=== PATIENT | male | born 1990 | race Caucasian/White ===

== ENCOUNTER 2017-11-01 20:39 | Inpatient (IN) | payer OTHER ==
[2017-11-01] MEDS: HYDROCODONE/APAP (10/325) TAB PO (22:32)
[2017-11-01] MEDS: ONDANSETRON (ODT) 4 MG TAB ODT (22:32)
[2017-11-01 22:53] LABS: ADD MAN DIFF? NO
[2017-11-01 22:56] LABS: BASOPHILS % 0.3 % (0.0-2.0); EOSINOPHILS # 0.1 10^3/ul (0.0-0.5); EOSINOPHILS % 0.5 % (0.0-7.0); HEMATOCRIT 48.9 % (42.0-52.0); HEMOGLOBIN 16.3 g/dl (14.0-18.0); LYMPHOCYTES # 2.1 10^3/ul (0.8-2.9); LYMPHOCYTES % 19.3 % (15.0-51.0); MEAN CORPUSCULAR HEMOGLOBIN 28.6 pg (29.0-33.0); MEAN CORPUSCULAR HGB CONC 33.3 g/dl (32.0-37.0); MEAN CORPUSCULAR VOLUME 85.9 fl (82.0-101.0); MEAN PLATELET VOLUME 9.7 fl (7.4-10.4); MONOCYTE # 0.7 10^3/ul (0.3-0.9); MONOCYTES % 6.1 % (0.0-11.0); NEUTROPHIL # 8.1 10^3/ul (1.6-7.5); NEUTROPHILS % 73.4 % (39.0-77.0); PLATELET COUNT 338 10^3/UL (140-415); RED BLOOD COUNT 5.69 10^6/ul (4.70-6.10); RED CELL DISTRIBUTION WIDTH 11.7 % (11.5-14.5)
[2017-11-01 23:26] LABS: ALANINE AMINOTRANSFERASE 335 IU/L (13-69); ALBUMIN 4.6 g/dl (3.3-4.9); ALBUMIN/GLOBULIN RATIO 1.17; ALKALINE PHOSPHATASE 85 IU/L (42-121); ANION GAP 14 (8-16); BLOOD UREA NITROGEN 11 mg/dl (7-20); CALCIUM 9.6 mg/dl (8.4-10.2); CARBON DIOXIDE 25 mmol/L (21-31); CHLORIDE 103 mmol/L (97-110); CREATININE 0.75 mg/dl (0.61-1.24); GLUCOSE 113 mg/dl (70-220); POTASSIUM 4.2 mmol/L (3.5-5.1); SODIUM 138 mmol/L (135-144); TOTAL PROTEIN 8.5 g/dl (6.1-8.1)
[2017-11-01 23:29] LABS: ADD UMIC YES; UR ASCORBIC ACID NEGATIVE (NEGATIVE); UR BACTERIA FEW /HPF (NONE SEEN); UR BILIRUBIN (Dip) NEGATIVE (NEGATIVE); UR BLOOD (Dip) 3+ mg/dL (NEGATIVE); UR CLARITY CLOUDY (CLEAR); UR COLOR RED (YELLOW); UR GLUCOSE (Dip) 1+ mg/dL (NEGATIVE); UR KETONES (Dip) NEGATIVE (NEGATIVE); UR LEUKOCYTE ESTERASE (Dip) NEGATIVE Leu/ul (NEGATIVE); UR MUCUS MANY /HPF (NONE SEEN); UR NITRITE (Dip) NEGATIVE (NEGATIVE); UR RBC 2 /HPF (0-5); UR SPECIFIC GRAVITY (Dip) 1.028 (1.003-1.030); UR SQUAMOUS EPITHELIAL CELL MODERATE /HPF (FEW); UR TOTAL PROTEIN (Dip) 2+ mg/dl (NEGATIVE); UR UROBILINOGEN (Dip) NEGATIVE (NEGATIVE); UR WBC 12 /HPF (0-5)
[2017-11-01] MEDS: SOD CHLORIDE 0.9% 1,000 ML IV (23:48)
[2017-11-02 00:18] LABS: ASPARTATE AMINO TRANSFERASE 1570 IU/L (15-46)
[2017-11-02] MEDS: SOD CHLORIDE 0.9% 1,000 ML IV ×8 (01:09→22:38)
[2017-11-02 01:45] LABS: CREATINE KINASE 145229 IU/L (23-200)
[2017-11-02] MEDS ORDERED: ONDANSETRON 4 MG INJ IV (02:30)
[2017-11-02] MEDS ORDERED: DOCUSATE SODIUM 100 MG CAP PO (02:30)
[2017-11-02] MEDS ORDERED: BISACODYL (EC) 5 MG TAB PO (02:30)
[2017-11-02] MEDS ORDERED: HYDROmorphONE 0.5 MG/0.5 ML SYG IV (02:30)
[2017-11-02] MEDS ORDERED: NACL 0.9% 3 ML SYG IV (02:30)
[2017-11-02 03:35] LABS: HAAIG REFLEX REFLEX FILED
[2017-11-02 03:54] LABS: ETHANOL < 10.0 mg/dl
[2017-11-02 04:03] LABS: B-TYPE NATRIURETIC PEPTIDE 47 PG/ML (0-125)
[2017-11-02 04:07] LABS: TROPONIN-I < 0.010 ng/ml (0.000-0.120)
[2017-11-02 04:52] LABS: AMPHETAMINE/METHAMPHETAMINE Negative (NEGATIVE); BARBITURATES Negative (NEGATIVE); BENZODIAZEPINES Negative (NEGATIVE); CANNABINOIDS Negative (NEGATIVE); COCAINE Negative (NEGATIVE); OPIATES Negative (NEGATIVE)
[2017-11-02 07:52] LABS: TROPONIN-I < 0.010 ng/ml (0.000-0.120)
[2017-11-02 08:09] LABS: ALANINE AMINOTRANSFERASE 306 IU/L (13-69); ALBUMIN 3.7 g/dl (3.3-4.9); ALBUMIN/GLOBULIN RATIO 1.37; ALKALINE PHOSPHATASE 69 IU/L (42-121); ANION GAP 14 (8-16); BILIRUBIN,INDIRECT 0.9 mg/dl (0-1.1); BILIRUBIN,TOTAL 0.9 mg/dl (0.2-1.3); BLOOD UREA NITROGEN 10 mg/dl (7-20); CALCIUM 9.1 mg/dl (8.4-10.2); CARBON DIOXIDE 27 mmol/L (21-31); CHLORIDE 104 mmol/L (97-110); CREATININE 0.71 mg/dl (0.61-1.24); GLUCOSE 107 mg/dl (70-220); POTASSIUM 4.1 mmol/L (3.5-5.1); SODIUM 141 mmol/L (135-144); TOTAL PROTEIN 6.4 g/dl (6.1-8.1)
[2017-11-02] MEDS: ENOXAPARIN 40 MG/0.4 ML SYG SC (09:42)
[2017-11-02 09:55] LABS: ASPARTATE AMINO TRANSFERASE 1430 IU/L (15-46)
[2017-11-02 10:35] LABS: CREATINE KINASE 118295 IU/L (23-200)
[2017-11-02] MEDS: ACETAMINOPHEN 325 MG TAB PO (12:29)
[2017-11-02 13:41] LABS: HEPATITIS B SURFACE ANTIGEN NEGATIVE (NEGATIVE)
[2017-11-02 13:42] LABS: TROPONIN-I < 0.010 ng/ml (0.000-0.120)
[2017-11-02 13:58] LABS: CREATINE KINASE 120468 IU/L (23-200)
[2017-11-02 13:59] LABS: HEPATITIS B CORE ANTIBODY NEGATIVE (NEGATIVE); HEPATITIS C VIRAL ANTIBODY NEGATIVE (NEGATIVE)
[2017-11-02 18:31] LABS: HEPATITIS B SURFACE ANTIBODY POSITIVE (NEGATIVE)
[2017-11-02 19:39] LABS: TROPONIN-I < 0.010 ng/ml (0.000-0.120)
[2017-11-02 20:58] LABS: CREATINE KINASE 114430 IU/L (23-200)
[2017-11-03] MEDS: SOD CHLORIDE 0.9% 1,000 ML IV ×10 (02:41→23:32)
[2017-11-03 05:47] LABS: ADD MAN DIFF? NO
[2017-11-03 05:59] LABS: WHITE BLOOD COUNT 10.3 10^3/ul (4.8-10.8)
[2017-11-03 05:59] LABS: BASOPHILS % 0.3 % (0.0-2.0); EOSINOPHILS # 0.1 10^3/ul (0.0-0.5); EOSINOPHILS % 0.7 % (0.0-7.0); HEMATOCRIT 43.1 % (42.0-52.0); HEMOGLOBIN 14.2 g/dl (14.0-18.0); LYMPHOCYTES # 2.1 10^3/ul (0.8-2.9); LYMPHOCYTES % 20.1 % (15.0-51.0); MEAN CORPUSCULAR HEMOGLOBIN 28.4 pg (29.0-33.0); MEAN CORPUSCULAR HGB CONC 32.9 g/dl (32.0-37.0); MEAN CORPUSCULAR VOLUME 86.2 fl (82.0-101.0); MEAN PLATELET VOLUME 9.7 fl (7.4-10.4); MONOCYTE # 0.7 10^3/ul (0.3-0.9); MONOCYTES % 6.9 % (0.0-11.0); NEUTROPHIL # 7.4 10^3/ul (1.6-7.5); NEUTROPHILS % 71.7 % (39.0-77.0); PLATELET COUNT 288 10^3/UL (140-415); RED CELL DISTRIBUTION WIDTH 11.8 % (11.5-14.5)
[2017-11-03 06:57] LABS: ALANINE AMINOTRANSFERASE 397 IU/L (13-69); ALBUMIN 3.9 g/dl (3.3-4.9); ALBUMIN/GLOBULIN RATIO 1.34; ALKALINE PHOSPHATASE 59 IU/L (42-121); ANION GAP 10 (8-16); BILIRUBIN,INDIRECT 0.6 mg/dl (0-1.1); BILIRUBIN,TOTAL 0.6 mg/dl (0.2-1.3); BLOOD UREA NITROGEN 11 mg/dl (7-20); CALCIUM 9.6 mg/dl (8.4-10.2); CARBON DIOXIDE 31 mmol/L (21-31); CHLORIDE 104 mmol/L (97-110); CHOLESTEROL 182 mg/dl (100-200); CREATININE 0.72 mg/dl (0.61-1.24); GLUCOSE 96 mg/dl (70-220); HDL CHOLESTEROL 45 mg/dl (30-63); LDL CHOLESTEROL,CALCULATED 121 mg/dl; MAGNESIUM 1.9 mg/dl (1.7-2.5); POTASSIUM 5.3 mmol/L (3.5-5.1); SODIUM 140 mmol/L (135-144); TOTAL PROTEIN 6.8 g/dl (6.1-8.1); TRIGLYCERIDES 81 mg/dl (0-149)
[2017-11-03 07:11] LABS: HEMOGLOBIN A1C 5.3 % (0-5.9)
[2017-11-03] MEDS: PANTOPRAZOLE (EC) 40 MG TAB PO (08:04)
[2017-11-03] MEDS: ENOXAPARIN 40 MG/0.4 ML SYG SC (08:14)
[2017-11-03 08:28] LABS: ASPARTATE AMINO TRANSFERASE 1773 IU/L (15-46)
[2017-11-03 09:32] LABS: CREATINE KINASE 111695 IU/L (23-200)
[2017-11-03 13:48] LABS: ADD UMIC YES; UR ASCORBIC ACID NEGATIVE (NEGATIVE); UR BILIRUBIN (Dip) NEGATIVE (NEGATIVE); UR BLOOD (Dip) 2+ mg/dL (NEGATIVE); UR CLARITY CLEAR (CLEAR); UR COLOR STRAW (YELLOW); UR GLUCOSE (Dip) NEGATIVE (NEGATIVE); UR KETONES (Dip) NEGATIVE (NEGATIVE); UR LEUKOCYTE ESTERASE (Dip) NEGATIVE Leu/ul (NEGATIVE); UR NITRITE (Dip) NEGATIVE (NEGATIVE); UR RBC 0 /HPF (0-5); UR TOTAL PROTEIN (Dip) NEGATIVE (NEGATIVE); UR UROBILINOGEN (Dip) NEGATIVE (NEGATIVE); UR WBC 0 /HPF (0-5)
[2017-11-03 20:04] LABS: CREATINE KINASE 115509 IU/L (23-200)
[2017-11-04] MEDS: SOD CHLORIDE 0.9% 1,000 ML IV ×9 (00:52→18:15)
[2017-11-04] MEDS: PANTOPRAZOLE (EC) 40 MG TAB PO (08:38)
[2017-11-04 08:52] LABS: ADD MAN DIFF? NO
[2017-11-04] MEDS: ENOXAPARIN 40 MG/0.4 ML SYG SC (08:56)
[2017-11-04 08:57] LABS: WHITE BLOOD COUNT 8.2 10^3/ul (4.8-10.8)
[2017-11-04 08:57] LABS: BASOPHILS % 0.2 % (0.0-2.0); EOSINOPHILS # 0.1 10^3/ul (0.0-0.5); HEMATOCRIT 42.8 % (42.0-52.0); HEMOGLOBIN 14.3 g/dl (14.0-18.0); LYMPHOCYTES % 24.8 % (15.0-51.0); MEAN CORPUSCULAR HEMOGLOBIN 29.1 pg (29.0-33.0); MEAN CORPUSCULAR HGB CONC 33.4 g/dl (32.0-37.0); MEAN PLATELET VOLUME 9.8 fl (7.4-10.4); MONOCYTE # 0.4 10^3/ul (0.3-0.9); MONOCYTES % 5.4 % (0.0-11.0); NEUTROPHIL # 5.6 10^3/ul (1.6-7.5); NEUTROPHILS % 68.4 % (39.0-77.0); PLATELET COUNT 292 10^3/UL (140-415); RED BLOOD COUNT 4.92 10^6/ul (4.70-6.10); RED CELL DISTRIBUTION WIDTH 11.7 % (11.5-14.5)
[2017-11-04 09:12] LABS: ALANINE AMINOTRANSFERASE 437 IU/L (13-69); ALBUMIN 3.9 g/dl (3.3-4.9); ALBUMIN/GLOBULIN RATIO 1.44; ALKALINE PHOSPHATASE 67 IU/L (42-121); ANION GAP 9 (8-16); BILIRUBIN,INDIRECT 0.7 mg/dl (0-1.1); BILIRUBIN,TOTAL 0.7 mg/dl (0.2-1.3); BLOOD UREA NITROGEN 8 mg/dl (7-20); CALCIUM 9.4 mg/dl (8.4-10.2); CARBON DIOXIDE 29 mmol/L (21-31); CHLORIDE 106 mmol/L (97-110); CREATININE 0.64 mg/dl (0.61-1.24); GLUCOSE 94 mg/dl (70-220); POTASSIUM 4.1 mmol/L (3.5-5.1); SODIUM 140 mmol/L (135-144); TOTAL PROTEIN 6.6 g/dl (6.1-8.1)
[2017-11-04 09:29] LABS: INR 0.98; PROTIME 13.1 Sec (11.9-14.9)
[2017-11-04 09:30] LABS: PARTIAL THROMBOPLASTIN TIME 27.1 Sec (25.0-35.0)
[2017-11-04 09:46] LABS: ASPARTATE AMINO TRANSFERASE 1404 IU/L (15-46)
[2017-11-04 10:04] LABS: CREATINE KINASE 76044 IU/L (23-200)
[2017-11-04 20:55] LABS: CREATINE KINASE 46747 IU/L (23-200)
[2017-11-05] MEDS: SOD CHLORIDE 0.9% 1,000 ML IV ×4 (01:39→22:28)
[2017-11-05 07:13] LABS: ADD MAN DIFF? NO
[2017-11-05 07:18] LABS: BASOPHILS % 0.3 % (0.0-2.0); EOSINOPHILS # 0.1 10^3/ul (0.0-0.5); HEMATOCRIT 42.9 % (42.0-52.0); HEMOGLOBIN 14.1 g/dl (14.0-18.0); LYMPHOCYTES % 21.8 % (15.0-51.0); MEAN CORPUSCULAR HEMOGLOBIN 28.3 pg (29.0-33.0); MEAN CORPUSCULAR HGB CONC 32.9 g/dl (32.0-37.0); MONOCYTE # 0.4 10^3/ul (0.3-0.9); MONOCYTES % 4.8 % (0.0-11.0); NEUTROPHIL # 6.5 10^3/ul (1.6-7.5); NEUTROPHILS % 71.9 % (39.0-77.0); PLATELET COUNT 311 10^3/UL (140-415); RED BLOOD COUNT 4.99 10^6/ul (4.70-6.10)
[2017-11-05 07:37] LABS: MAGNESIUM 1.7 mg/dl (1.7-2.5)
[2017-11-05 07:46] LABS: ALANINE AMINOTRANSFERASE 410 IU/L (13-69); ALBUMIN 3.9 g/dl (3.3-4.9); ALBUMIN/GLOBULIN RATIO 1.25; ALKALINE PHOSPHATASE 67 IU/L (42-121); ANION GAP 15 (8-16); BILIRUBIN,INDIRECT 0.6 mg/dl (0-1.1); BILIRUBIN,TOTAL 0.6 mg/dl (0.2-1.3); BLOOD UREA NITROGEN 12 mg/dl (7-20); CALCIUM 9.3 mg/dl (8.4-10.2); CARBON DIOXIDE 26 mmol/L (21-31); CHLORIDE 105 mmol/L (97-110); CREATININE 0.75 mg/dl (0.61-1.24); GLUCOSE 97 mg/dl (70-220); POTASSIUM 4.3 mmol/L (3.5-5.1); SODIUM 142 mmol/L (135-144)
[2017-11-05 08:11] LABS: ASPARTATE AMINO TRANSFERASE 922 IU/L (15-46)
[2017-11-05] MEDS: PANTOPRAZOLE (EC) 40 MG TAB PO (08:17)
[2017-11-05] MEDS: ENOXAPARIN 40 MG/0.4 ML SYG SC (08:19)
[2017-11-05 14:24] LABS: CREATINE KINASE 15489 IU/L (23-200)
[2017-11-06 06:28] LABS: ADD MAN DIFF? NO
[2017-11-06 06:31] LABS: BASOPHILS % 0.4 % (0.0-2.0); EOSINOPHILS # 0.1 10^3/ul (0.0-0.5); EOSINOPHILS % 1.1 % (0.0-7.0); HEMATOCRIT 41.7 % (42.0-52.0); HEMOGLOBIN 13.9 g/dl (14.0-18.0); IMMATURE GRANS #M 0.02 10^3/ul; IMMATURE GRANS % (M) 0.3 %; LYMPHOCYTES # 2.2 10^3/ul (0.8-2.9); LYMPHOCYTES % 27.6 % (15.0-51.0); MEAN CORPUSCULAR HEMOGLOBIN 28.6 pg (29.0-33.0); MEAN CORPUSCULAR HGB CONC 33.3 g/dl (32.0-37.0); MEAN CORPUSCULAR VOLUME 85.8 fl (82.0-101.0); MEAN PLATELET VOLUME 9.8 fl (7.4-10.4); MONOCYTE # 0.4 10^3/ul (0.3-0.9); MONOCYTES % 4.9 % (0.0-11.0); NEUTROPHIL # 5.3 10^3/ul (1.6-7.5); NEUTROPHILS % 65.7 % (39.0-77.0); PLATELET COUNT 277 10^3/UL (140-415); RED BLOOD COUNT 4.86 10^6/ul (4.70-6.10); RED CELL DISTRIBUTION WIDTH 11.9 % (11.5-14.5)
[2017-11-06 06:58] LABS: ALANINE AMINOTRANSFERASE 332 IU/L (13-69); ALBUMIN 3.9 g/dl (3.3-4.9); ALBUMIN/GLOBULIN RATIO 1.34; ALKALINE PHOSPHATASE 60 IU/L (42-121); ANION GAP 13 (8-16); ASPARTATE AMINO TRANSFERASE 539 IU/L (15-46); BILIRUBIN,INDIRECT 0.6 mg/dl (0-1.1); BILIRUBIN,TOTAL 0.6 mg/dl (0.2-1.3); BLOOD UREA NITROGEN 12 mg/dl (7-20); CALCIUM 9.2 mg/dl (8.4-10.2); CARBON DIOXIDE 27 mmol/L (21-31); CHLORIDE 103 mmol/L (97-110); CREATININE 0.68 mg/dl (0.61-1.24); GLUCOSE 97 mg/dl (70-220); MAGNESIUM 1.8 mg/dl (1.7-2.5); POTASSIUM 4.1 mmol/L (3.5-5.1); SODIUM 139 mmol/L (135-144); TOTAL PROTEIN 6.8 g/dl (6.1-8.1)
[2017-11-06] MEDS: PANTOPRAZOLE (EC) 40 MG TAB PO (08:16)
[2017-11-06] MEDS: ENOXAPARIN 40 MG/0.4 ML SYG SC (08:19)
[2017-11-06 08:57] LABS: CREATINE KINASE 8017 IU/L (23-200)
[2017-11-07 14:06] LABS: ANA SCREEN NEGATIVE (NEGATIVE)
== END 2017-11-06 11:25 | disposition home or self-care (01) | DRG 558 ==
LOC: FTE 20:39 → 6WM 11-02 01:41 → 2NE 11-02 18:20
DX: M62.82 Rhabdomyolysis (principal); Z68.43 Body mass index [BMI] 50.0-59.9, adult; E66.01 Morbid (severe) obesity due to excess calories; E87.5 Hyperkalemia; K76.0 Fatty (change of) liver, not elsewhere classified
CPT/HCPCS: 36415; 71045; 76705; 80053; 80061; 80307; 81001; 82550; 82553; 83036; 83735; 83880; 84100; 84443; 84484; 85025; 85610; 85730; 86038; 86704; 86706; 86708; 86709; 86803; 87340; 93005; 93306; 97161; 99285-25